=== PATIENT | male | born 1965 | race Caucasian/White ===

== ENCOUNTER 2016-11-29 09:06 | Emergency (ER) | payer BC ==
[~2016-11-29] VITALS: Ht 172.7 cm; Wt 114.0 kg
[~2016-11-29 09:06] MED LIST: ENDOCET 5-3251 EACH PO; LIDODERM 5% P1 PATCH TD; LYRICA150 MG PO; NOHOMEMEDS; Remove Lidoderm Patc TD; VALIUM5 MG PO; VICODIN HP 11 TABLET PO; VICODIN,LORT1 TABLET PO
[2016-11-29 09:55] LABS: ADD MIUA? YES; BILIRUBIN NEGATIVE; BLOOD LARGE; COLOR YELLOW ((YELLOW)); GLUCOSE (STRIP) NEGATIVE; KETONES NEGATIVE; LEUKOCYTES NEGATIVE; NITRITE NEGATIVE; PROTEIN (STRIP) 30; SPECIFIC GRAVITY 1.017 (1.000-1.030); UROBILINOGEN 0.2 MG/DL (0.2-1.0)
[2016-11-29 09:55] LABS: EOSINOPHIL (%) 2.8 % (0-5); EOSINOPHIL COUNT 0.1 K/uL (0-0.3); HEMATOCRIT 40.6 % (38.0-50.0); IMMATURE GRANULOCYTE (%) 0.3 % (0.0-0.7); INSTRUMENT ABS NEUTROPHIL CT 2.3 K/uL; LYMPHOCYTE COUNT 0.8 K/uL (1.0-2.8); MCH 34.8 PG (29.0-34.0); MCHC 34.2 G/DL (30.0-36.0); MCV 101.5 FL (86-99); MEAN PLAT.VOLUME 8.7 uM^3 (9.0-12.4); MONOCYTE COUNT 0.3 K/uL (0-0.8); NEUTROPHIL (%) 64.8 % (45-76); NEUTROPHIL COUNT 2.3 K/uL (1.8-6.4); PLATELET COUNT 159 K/uL (156-360); RBC DIS.WIDTH-CV 13.2 % (11.8-14.6); RBC DIS.WIDTH-SD 48.6 % (39-53); WHITE BLOOD COUNT 3.6 K/uL (4.1-10.2)
[2016-11-29 10:03] LABS: BACTERIA NONE SEEN /HPF; EPITHELIAL CELLS RARE /HPF; MUCUS TRACE /LPF; RED BLOOD CELLS TNTC /HPF (0-5)
[2016-11-29 10:05] LABS: CHLORIDE 105 mEq/L (99-109); POTASSIUM 3.8 mEq/L (3.7-5.4); SODIUM 138 mEq/L (136-147)
[2016-11-29 10:07] LABS: GLUCOSE 140 mg/dL (70-99)
[2016-11-29 10:09] LABS: ANION GAP 11 MEQ/L (2-14)
[2016-11-29 10:11] LABS: GFR ESTIMATE (CALCULATED) > 59 mL/min/
[2016-11-29 10:12] LABS: UREA NITROGEN (BUN) 17 mg/dL (9-23)
[2016-11-29] MEDS ORDERED: ZOFRAN4 MG PO (11:38)
[2016-11-29] MEDS ORDERED: PERCOCET 5/31 TABLET PO (11:38)
[2016-11-29 12:07] VITALS: BP 128/82
== END 2016-11-29 12:13 | disposition home or self-care (01) ==
LOC: EME 09:06
PROVIDERS: Emergency Medicine
DX: R10.9 Unspecified abdominal pain (principal); R11.2 Nausea with vomiting, unspecified; Z87.442 Personal history of urinary calculi; F17.200 Nicotine dependence, unspecified, uncomplicated
CPT/HCPCS: 74176; 80048; 81003; 85025; 99281; 99285; J2270; J2405; J7030

== ENCOUNTER 2017-04-14 15:25 | Emergency (ER) | payer OTHER ==
[~2017-04-14] VITALS: Ht 172.7 cm; Wt 117.3 kg
[~2017-04-14 15:25] MED LIST changes: +PERCOCET 5/31 TABLET PO; +ZOFRAN4 MG PO
[2017-04-14] MEDS ORDERED: PERCOCET 5/31 TABLET PO (16:36)
[2017-04-14 16:47] VITALS: BP 194/107
== END 2017-04-14 16:50 | disposition home or self-care (01) ==
LOC: EME 15:25
DX: S20.212A Contusion of left front wall of thorax, initial encounter (principal); W10.9XXA Fall (on) (from) unspecified stairs and steps, initial encounter; Y93.89 Activity, other specified; F17.200 Nicotine dependence, unspecified, uncomplicated; Z87.442 Personal history of urinary calculi; Z88.6 Allergy status to analgesic agent
CPT/HCPCS: 71100; 99281; 99283

== ENCOUNTER 2017-08-06 12:27 | Emergency (ER) | payer OTHER ==
[~2017-08-06] VITALS: Ht 172.7 cm; Wt 111.7 kg
[2017-08-06 12:35] VITALS: BP 136/77
[2017-08-06] MEDS ORDERED: PERCOCET 5/31 TABLET PO (14:00)
== END 2017-08-06 14:15 | disposition home or self-care (01) ==
LOC: EME 12:27
DX: S83.91XA Sprain of unspecified site of right knee, initial encounter (principal); X58.XXXA Exposure to other specified factors, initial encounter; F17.200 Nicotine dependence, unspecified, uncomplicated
CPT/HCPCS: 73564; 99281; 99283

== ENCOUNTER 2017-08-20 11:12 | Emergency (ER) | payer SELFPAY ==
[~2017-08-20] VITALS: Ht 172.7 cm; Wt 114.0 kg
[2017-08-20 11:50] LABS: APPEARANCE SL.HAZY ((CLEAR)); BILIRUBIN NEGATIVE; BLOOD LARGE; COLOR YELLOW ((YELLOW)); GLUCOSE (STRIP) NEGATIVE; KETONES NEGATIVE; LEUKOCYTES NEGATIVE; NITRITE NEGATIVE; PROTEIN (STRIP) 30; SPECIFIC GRAVITY 1.014 (1.000-1.030); UROBILINOGEN 0.2 MG/DL (0.2-1.0)
[2017-08-20 11:56] LABS: HEMATOCRIT 38.7 % (38.0-50.0); HEMOGLOBIN 13.7 G/DL (12.5-16.6); MCH 35.4 PG (29.0-34.0); MCHC 35.4 G/DL (30.0-36.0); PLATELET COUNT 167 K/uL (156-360); RBC DIS.WIDTH-CV 12.8 % (11.8-14.6); RBC DIS.WIDTH-SD 46.9 % (39-53); RED BLOOD COUNT 3.87 M/uL (4.00-5.50); WHITE BLOOD COUNT 4.9 K/uL (4.1-10.2)
[2017-08-20 12:03] LABS: ALBUMIN 4.6 g/dL (3.2-4.8); CHLORIDE 103 mEq/L (99-109); POTASSIUM 4.5 mEq/L (3.7-5.4); SODIUM 137 mEq/L (136-147)
[2017-08-20 12:05] LABS: GLUCOSE 108 mg/dL (70-99); TOTAL PROTEIN 7.2 g/dL (6.4-8.3)
[2017-08-20 12:07] LABS: TOTAL BILIRUBIN 0.3 mg/dL (0.0-1.0)
[2017-08-20 12:09] LABS: ALKALINE PHOSPHATASE 59 IU/L (3-129); CREATININE 0.9 mg/dL (0.6-1.3); GFR ESTIMATE (CALCULATED) > 59 mL/min/ (58.99-99999)
[2017-08-20 12:10] LABS: UREA NITROGEN (BUN) 22 mg/dL (9-23)
[2017-08-20 12:11] LABS: AST (GOT) 62 IU/L (2-34); DIRECT BILIRUBIN 0.1 mg/dL (0.0-0.3)
[2017-08-20 12:12] LABS: ALT (GPT) 55 IU/L (3-49); LIPASE 24 U/L (1.0-51.0)
[2017-08-20 12:19] LABS: RED BLOOD CELLS TNTC /HPF (0-5); WHITE BLOOD CELLS 0-5 /HPF (0-5)
[2017-08-20 12:21] LABS: BACTERIA NONE SEEN /HPF; EPITHELIAL CELLS RARE /HPF; MUCUS NONE SEEN /LPF; UCUL ADDED? YES
[2017-08-20] MEDS ORDERED: TYLENOL EXTRA500 MG PO (14:36)
[2017-08-20] MEDS ORDERED: ZOFRAN4 MG PO (14:36)
[2017-08-20 14:51] VITALS: BP 149/91
== END 2017-08-20 14:52 | disposition home or self-care (01) ==
LOC: EME 11:12
DX: R10.9 Unspecified abdominal pain (principal); R31.9 Hematuria, unspecified; Z87.442 Personal history of urinary calculi; K57.30 Diverticulosis of large intestine without perforation or abscess without bleeding; I10 Essential (primary) hypertension; F17.200 Nicotine dependence, unspecified, uncomplicated; Z88.6 Allergy status to analgesic agent
CPT/HCPCS: 74176; 80048; 80076; 81003; 83690; 85027; 87086; 99281; 99285; J2405; J3010; J7120